=== PATIENT | male | born 1985 | race Caucasian/White ===

== ENCOUNTER 2016-10-30 14:38 | Emergency (ER) | payer SELFPAY ==
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
== END 2016-10-30 16:05 | disposition home or self-care (01) ==
LOC: ER 14:38
DX: S40.011A Contusion of right shoulder, initial encounter (principal); V19.9XXA Pedal cyclist (driver) (passenger) injured in unspecified traffic accident, initial encounter
CPT/HCPCS: 99283